=== PATIENT | female | born 1985 | race Two or more races ===

== ENCOUNTER → 2024-10-14 | Outpatient (CLI) | payer OTHER, BC, SELFPAY ==
[2024-10-13 16:31] LABS: HCG Qualitative,Urine Negative
--- NOTE | 2024-10-14 12:15 | XR_ITS ---
Examination: MRI of brain without intravenous contrast. MRI brain with intravenous contrast. Date and time of exam:October 14, 2024 1313 hours INDICATIONS: Headaches numbness in the face lips and tongue several years Technique: Multiple axial and sagittal images of the brain to been obtained. Siemens high-resolution 1.52 Alexia short bore scanner utilized. Sagittal sections, T1 weighted images, TR 500, TE 14, are performed. Axial sections proton-density and T2-weighted images have been obtained. Inversion recovery axial images, TR 9260, TE 111, TR 2500. Diffusion weighted images, axial sections, TR 4800, TE 128, B value 1000. Axial sections, ADC map, TR 4800, TE 128. Axial and coronal images were also obtained post 16 cc gadolinium administered intravenously. Findings:: Enlargement of the sella turcica is not present. The optic chiasm and infundibular stalk are not remarkable. There is no localized enlargement of the medulla or meghan. Fourth ventricle and cerebellar tonsils appear normal in position. No subacute area of hemorrhage density is seen. Fourth ventricle is midline. Mass in the cerebellopontine angle region is not evident. 7th and 8th nerve complexes exhibit symmetry Globes are symmetrical Orbital musculature including medial lateral rectus muscles do not exhibit abnormality Increased white matter signal is evident, punctate focus increased signal right frontal parietal white matter FLAIR image 18 and possibly right high parietal white matter FLAIR image 21 cm Effacement of the cortical sulcal markings is not identified. Mass effect upon the ventricular system is not identified. Diffusion-weighted images demonstrate no focus of restricted diffusion Contrast images demonstrate 8 x 5 x 9 mm enhancing lesion right temporal lobe convexity coronal image 12, axial image 13, sagittal image 2 consistent with small meningioma Impression: Punctate foci increased signal in the right frontal parietal white matter, consider early demyelinating disease Right temporal convexity enhancing lesion 8 x 5 x 9 mm, likely early meningioma
== END | disposition home or self-care (01) ==
PROVIDERS: PCP Internal Medicine; Referring Provider Psychiatry & Neurology Neurology; Visit Provider Psychiatry & Neurology Neurology
DX: R90.82 White matter disease, unspecified (principal); G93.89 Other specified disorders of brain
CPT/HCPCS: 70553; 81025; A9579

== ENCOUNTER → 2024-12-10 | Outpatient (CLI) | payer BC, SELFPAY ==
--- NOTE | 2024-12-10 14:30 | XR_ITS ---
Examination: Breast ultrasound, unilateral, right Date and time of exam: December 10, 2024 1451 hours INDICATIONS: Superficial growth on top of the right nipple for months with itchiness Technique: Real-time peraza scale ultrasonographic imaging performed right breast including all 4 quadrants as well as nipple retroareolar and axillary region. Findings: No cystic or solid mass IMPRESSION: BI-RADS Category 1: Negative study
--- NOTE | 2024-12-10 15:15 | XR_ITS ---
Examination: Diagnostic digital mammography, bilateral Computer aided detection 3-D breast Tomosynthesis, bilateral Date and time of exam: December 10 70,025, 1501 hours INDICATIONS: Patient states palpable lump right nipple note is beginning 2 months ago Technique: Nonmagnified MLO, CC views of the breasts to been obtained, reconstructed from 3-D Tomosynthesis images. R2 computer aided detection program utilized for evaluation of suspicious masses and/or abnormal calcifications. 3-D Tomosynthesis images obtained. Findings: Breasts are heterogeneously dense, which may obscure small masses 13 mm focal asymmetry retroareolar region right breast 6 mm focal asymmetry outer left breast posterior depth, which may be upper left breast on the MLO view Impression: BI-RADS Category 0: Incomplete: Need additional imaging evaluation Recommend follow-up spot tomographic views of 13 mm focal asymmetry retroareolar region right breast as well as 6 mm focal asymmetry upper outer left breast posterior depth as well as bilateral breast sonography to complete the workup.
== END | disposition home or self-care (01) ==
PROVIDERS: PCP Internal Medicine; Referring Provider Surgery; Visit Provider Surgery
DX: N64.89 Other specified disorders of breast (principal)
CPT/HCPCS: 76641; 77062; 77066; G0279

== ENCOUNTER 2025-03-20 15:57 | Emergency (ER) | payer OTHER, SELFPAY ==
[2025-03-20 16:04] VITALS: BMI 30.9
[2025-03-20 16:05] VITALS: PULSE 82; RESP 18
[2025-03-20 16:22] VITALS: BP 140/99; PULSE 70; RESP 18; TEMP 36.7; O2SAT 99
--- NOTE | 2025-03-20 16:57 | XR_ITS ---
Examination: Knee, right, 3 views Technique: Knee AP, lateral, oblique 3 views Date and time of exam: March 20, 2025, 1720 hours INDICATIONS: Patient fell today with injury to the knee, knee pain. FINDINGS: No acute fracture No dislocation Small to moderate knee effusion IMPRESSION: No fracture Small to moderate right knee effusion, seen with internal derangement of the knee
[2025-03-20] MEDS: KETOROLAC INJ 30 MG/ML VIAL IM (18:01)
--- NOTE | 2025-03-20 19:19 | PD.EDFALL ---
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 Patient cannot bear weight. Patient denies any bleeding or additional trauma. Patient has a history of right knee concerns. Patient was mildly hypertensive at arrival. Related Data Previous Rx's ?Medication ?Instructions ?Recorded desvenlafaxine succinate 100 mg 100 mg PO QDAY #60 tabs 07/06/23 tablet,extended release 24 hr (Pristiq) rizatriptan 10 mg tablet 10 mg PO Q2H PRN migraine headache 07/06/23 #10 tabs blood sugar diagnostic (OneTouch #50 ea 07/13/23 Verio test strips) levothyroxine 100 mcg capsule 100 mcg PO QDAY #40 caps 07/13/23 hydrocodone 5 mg-acetaminophen 325 1 tab PO Q6H PRN pain #20 tabs 03/20/25 mg tablet ibuprofen 800 mg tablet (IBU) 800 mg PO Q8H PRN pain #20 tabs 03/20/25 Allergies Allergy/AdvReac Type Severity Reaction Status Date / Time amoxicillin (From Augmentin) Allergy Verified 03/20/25 16:05 clavulanic acid (From Allergy Verified 03/20/25 16:05 Augmentin) lamotrigine (From Lamictal) Allergy Rash Verified 03/20/25 16:05 Pertussis Vaccines Allergy Verified 03/20/25 16:05 Review of Systems Review of Systems Systems Reviewed: All systems reviewed, normal except as documented Past Medical History Past Medical History NEUROLOGIC: Positive Migraine ENT: Positive Ear Infection ENDOCRINE: Positive Hypoglycemia and Hypothyroidism PSYCHO/SOCIAL: Positive Depression and Anxiety Social History SMOKING STATUS: Never smoker ED Exam Narrative Physical exam: Patient was in mild discomfort as long as she did not move the knee at time of evaluation. General Limitations: Present no limitations General appearance: Present alert and in no apparent distress Head Head exam: Present atraumatic Eye Eye exam: Present normal appearance, PERRL and EOMI ENT ENT exam: Present normal exam, normal oropharynx and mucous membranes moist Neck Neck exam: Present normal inspection, full ROM and trachea midline Chest Chest inspection: Present normal inspection and symmetric chest wall rise Respiratory Respiratory exam: Present normal lung sounds bilaterally Cardiovascular Cardiovascular exam: Present regular rate, normal rhythm and normal heart sounds Abdominal Exam Abdominal exam: Present soft and normal bowel sounds Extremities Exam Extremities exam: Present other (Diffuse medial and posterior knee pain. Significant reduced range of motion. Minimal edema without ecchymosis or erythema. Distal neurovascular intact.) Back Exam Back exam: Present normal inspection and full ROM Neurological Exam Neurological exam: Present alert, oriented X3 and CN II-XII intact Psychiatric Psychiatric exam: Present normal affect and normal mood Skin Skin exam: Present warm, dry, intact and normal color Course Quality Measures none Orders Category Date Time Status Crutches .NOW Care 03/20/25 16:57 Active XR knee RT 3V Stat Exams 03/20/25 16:57 Completed Ketorolac Inj [Toradol Inj] Med 03/20/25 16:57 Discontinued 30 mg IM X1 ONE As noted above Vital Signs Vital signs: Vital Signs Temperature 98.0 F 03/20/25 16:22 Pulse Rate 70 03/20/25 16:22 Respiratory Rate 18 03/20/25 16:22 Blood Pressure 140/99 H 03/20/25 16:22 Pulse Oximetry (%) 99 03/20/25 16:22 As noted above Fall MDM Narrative MDM Narrative:: All studies performed the ED were evaluated by me personally. Imaging studies were unremarkable for any acute fractures, but due to the fluid placement status post injury, concerns of internal knee derangement have been expressed. 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 Internal knee derangement Medications / Prescriptions Medications or Prescriptions considered but not ordered:: None Medication administrations:: Medication Administration History Discontinued Medications Ketorolac Tromethamine (Ketorolac Inj 30 Mg/Ml Vial) 30 mg IM X1 ONE Stop: 03/20/25 16:58 Last Admin: 03/20/25 18:01 Dose: 30 mg Documented By: DO As noted above Consultations Consultation(s) initiated? (list below): No Diagnosis Fall Differential Diagnosis: other (Knee fracture, knee sprain, internal knee derangement) Most likely diagnosis given after review of the tests above:: Knee sprain, internal knee derangement Admission Indicated Admission indicated?: not indicated Explain why admission is indicated or not indicated:: Unwarranted Admission Request Was there a request for admission?: No Disposition Plan Disposition Plan: Discharge Discharge Attestation Discharge Attestation: The patient and all family members were given an opportunity to ask questions and understood the discharge instructions. Discharge instructions specifically effects, indications for sooner follow up or return to the emergency department, and the expected course of current diagnosis. Patient condition: Stable Discharge Plan Plan Patient Disposition: HOME (Self Care) Prescriptions/Referrals Prescriptions/Med Rec: New ibuprofen [IBU] 800 mg tablet 800 mg PO Q8H PRN (Reason: pain) Qty: 20 0RF hydrocodone-acetaminophen 5-325 mg tablet 1 tab PO Q6H MDD 4 tablets PRN (Reason: pain) Qty: 20 0RF No Action desvenlafaxine succinate [Pristiq] 100 mg tablet extended release 24 hr 100 mg PO QDAY Qty: 60 5RF rizatriptan 10 mg tablet 10 mg PO Q2H PRN (Reason: migraine headache) Qty: 10 5RF Rx Instructions: do not exceed 3 doses per 24 hrs (DME) OneTouch Verio test strips Strip See Rx Instructions .Route Qty: 50 1RF Rx Instructions: As directed levothyroxine 100 mcg capsule 100 mcg PO QDAY Qty: 40 0RF Problem List Clinical Impression: Internal derangement of knee, Knee sprain Patient/Caregiver Discharge Instructions Education Materials: ED Knee Sprain, ED Sprain Knee Collateral Ligaments Additional Instructions: Advised patient like pain medication as needed for symptomatic relief as well as ice therapy. If symptoms continue, patient will need to follow-up with either Worker's Comp. primary care or her personal primary care provider for continued evaluation and management. Print Language: Citizen Of [place] Stand Alone Forms: Vanessa Award Info., Patient Portal Info Letter
== END 2025-03-20 20:17 | disposition home or self-care (01) ==
LOC: SERX 19:25
PROVIDERS: Emergency Provider Emergency Medicine
DX: S83.91XA Sprain of unspecified site of right knee, initial encounter (principal); M23.91 Unspecified internal derangement of right knee; X50.1XXA Overexertion from prolonged static or awkward postures, initial encounter; Y93.67 Activity, basketball
CPT/HCPCS: 73562; 96372; 99283; J1885

== ENCOUNTER → 2025-04-06 | Outpatient (CLI) | payer BC, SELFPAY ==
--- NOTE | 2025-04-06 14:01 | XR_ITS ---
Examination: Diagnostic digital mammography, bilateral Computer aided detection 3-D breast Tomosynthesis, bilateral Date and time of exam: 04/06/2025, 2:05 p.m. Comparisons: 12/10/2024 Indications: Further evaluation of bilateral focal asymmetry seen on prior screening exam. Technique: Nonmagnified MLO, CC views of the breasts to been obtained, reconstructed from 3-D Tomosynthesis images. R2 computer aided detection program utilized for evaluation of suspicious masses and/or abnormal calcifications. 3-D Tomosynthesis images obtained. Findings: The breasts are heterogeneously dense, which may obscure small masses. No evidence of abnormal masses or suspicious calcifications. The previously described abnormalities do not persist on spot compression views and represents superimposition of normal fibroglandular tissue. Impression: BI-RADS category 1: Negative findings (within normal) Recommend 1 year follow-up mammogram
== END | disposition home or self-care (01) ==
PROVIDERS: PCP Internal Medicine; Referring Provider Specialist; Visit Provider Specialist
DX: R92.313 Mammographic fatty tissue density, bilateral breasts (principal)
CPT/HCPCS: 77062; 77066; G0279